=== PATIENT | female | born 1980 | race Two or more races ===

== ENCOUNTER 2020-01-02 19:47 | Inpatient (IN) | payer OTHER ==
[~2020-01-02] VITALS: Ht 167.6 cm; Wt 79.4 kg
[2020-01-02] MEDS ORDERED: PRENATAL 19 TA1 EACH PO (23:28)
[2020-01-03] MEDS ORDERED: PROFERRIN-FORT1 EACH PO (09:30)
[2020-01-03] MEDS ORDERED: ADULT LOW DOSE81 M1 PO (09:30)
[2020-01-10] MEDS ORDERED: CEFADROXIL500 MG PO (16:40)
[2020-01-10] MEDS ORDERED: NIFEDIPINE20 MG PO (16:40)
== END 2020-01-10 16:58 | disposition home or self-care (01) | DRG 832 ==
LOC: LDR 19:47 → OB/GYN 01-03 18:51
PROVIDERS: ADMIT Obstetrics & Gynecology
PROC: 4A1HXFZ Monitoring of Products of Conception, Cardiac Rhythm, External Approach (ICD-10-PCS; principal; 2020-01-03)
PROC: BY4FZZZ Ultrasonography of Third Trimester, Single Fetus (ICD-10-PCS; 2020-01-03)
DX: O60.03 Preterm labor without delivery, third trimester (principal); O23.43 Unspecified infection of urinary tract in pregnancy, third trimester; O34.211 Maternal care for low transverse scar from previous cesarean delivery; Z3A.30 30 weeks gestation of pregnancy

== ENCOUNTER 2020-03-04 08:45 | Inpatient (IN) | payer OTHER ==
[~2020-03-04] VITALS: Ht 167.6 cm; Wt 3.6 kg
[~2020-03-04 08:45] MED LIST: ADULT LOW DOSE81 M1 PO; CEFADROXIL500 MG PO; NIFEDIPINE20 MG PO; PRENATAL 19 TA1 EACH PO; PROFERRIN-FORT1 EACH PO
[2020-03-04] MEDS ORDERED: PRENATAL PO (10:35)
[2020-03-09] MEDS ORDERED: PRENATAL + DHA1 EAC1 PO (09:29)
[2020-03-12] MEDS ORDERED: IBUPROFEN800 MG PO (06:59)
== END 2020-03-12 12:44 | DRG 785 ==
LOC: OB/GYN 03-09 06:30 → O/R 03-09 06:30 → OB/GYN 03-09 08:45
PROVIDERS: ADMIT Obstetrics & Gynecology; ATTEND Obstetrics & Gynecology
PROC: 0UB70ZZ Excision of Bilateral Fallopian Tubes, Open Approach (ICD-10-PCS; 2020-03-09)
PROC: 4A0HXFZ Measurement of Products of Conception, Cardiac Rhythm, External Approach (ICD-10-PCS; 2020-03-09)
PROC: 10D00Z1 Extraction of Products of Conception, Low, Open Approach (ICD-10-PCS; principal; 2020-03-09 11:30)
DX: O82 Encounter for cesarean delivery without indication (principal); O34.211 Maternal care for low transverse scar from previous cesarean delivery; Z3A.39 39 weeks gestation of pregnancy; Z37.0 Single live birth; Z30.2 Encounter for sterilization; Z20.828 Contact with and (suspected) exposure to other viral communicable diseases